=== PATIENT | male | born 1950 | race African-American/Black ===

== ENCOUNTER 2016-11-11 16:35 | Emergency (ER) | payer MEDICARE ==
[2016-11-11] MEDS ORDERED: Dexamethasone 4 mg/ml Vial ONE (16:52)
[2016-11-11] MEDS ORDERED: methylPREDNISolone Acetate 40 mg/ml Vial ONE (16:54)
--- NOTE | 2016-11-11 17:30 | RAD ---
THREE VIEWS RIGHT WRIST 11/11/16 COMPARISON: None. HISTORY: Bilateral wrist and hand pain. FINDINGS: Three views of the right wrist shows no evidence of acute fracture or dislocation. There is calcific ation of the TFCC. There is joint space narrowing of the radiocarpal joint consistent with osteoarth ritis. 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 POS: [facility]
[2016-11-11 17:51] LABS: ALT (SGPT) 41 U/L (0-55); AST (SGOT) 39 U/L (5-34); Alkaline Phosphatase 86 U/L (40-150); Anion Gap 15 mmol/L (10-20); BUN (Urea Nitrogen) 14 mg/dL (8.4-25.7); Bilirubin, Total 0.5 mg/dL (0.2-1.2); Calc. Creatinine Clearance 0 mL/min (70-130); Calcium 9.2 mg/dL (7.8-10.44); Carbon Dioxide 23 mmol/L (23-31); Chloride 105 mmol/L (98-107); Estimated GFR-MDRD 83; Protein, Total 7.8 g/dL (5.8-8.1)
[2016-11-11 17:53] LABS: #Basophils 0.1 thou/uL (0.0-0.2); #Eosinphils 0.3 thou/uL (0.0-0.7); #Lymphocytes 3.6 thou/uL (1.20-3.40); #Monocytes 0.5 thou/uL (0.11-0.59); #Neutrophils 2.5 thou/uL (1.40-6.50); %Basophils 1.6 % (0.0-1.0); %Eosinophils 3.7 % (0.0-10.0); %Lymphocytes 51.5 % (21.0-51.0); Mean Platelet Volume 8.8 fL (7.4-10.4)
--- NOTE | 2016-11-11 18:29 | PICIS ---
[facility] EMERGENCY RECORD TRIAGE (16:42 BDON) TRIAGE NOTES: Bilateral wrists and hand pain...denies recent injury. Thinks it is arthritis. (16:42 BDON) PATIENT: NAME: Jenaro Jansen, AGE: 66, GENDER: male, : Sun 1950, TIME OF GREET: [place] Nov 11, 2016 16:36, PREFERRED LANGUAGE: Gabonese, ETHNICITY: Not or , ECODE BILLING MAP: [facility], SSN: [id number], Zip Code: [address], KG WEIGHT: 83.91, PHONE: , , , PERSON ID: [id number], PCP: Jordy Mckeon. (16:42 BDON) COMPLAINT: HAND PAIN. (16:42 BDON) ADMISSION: URGENCY: 4 Non Urgent, ADMISSION SOURCE: Home, TRANSPORT: Walk-in, BED: TRIAGE. (16:42 BDON) ASSESSMENT: Assessment: Bilateral hand and wrists pain, states hips hurts also believing it is arthritis. (16:45 BDON) PROVIDERS: TRIAGE NURSE: Araceli Landeros RN. (16:42 BDON) VITAL SIGNS: BP 145/93, Pulse 88, Resp 17, Temp 97.5, (Oral), Pain 10, O2 Sat 96, Time 11/11/2016 16:40. (16:40 BDON) PREVIOUS VISIT ALLERGIES: No Known Drug Allergies. (16:42 BDON) No Known Drug Allergies. (16:45 BDON) KNOWN ALLERGIES No Known Drug Allergies CURRENT MEDICATIONS (16:42 BDON) Unknown blood pressure medication VITAL SIGNS VITAL SIGNS: BP: 145/93, Pulse: 88, Resp: 17, Temp: 97.5 (Oral), Pain: 10, O2 sat: 96, Time: 11/11/2016 16:40. (16:40 BDON) Resp: 17, Pain: 4, Time: 11/11/2016 17:50. (17:50 BDON) NURSING ASSESSMENT: HEAD-TO-TOE (17:04 BDON) CONSTITUTIONAL: Patient arrives ambulatory, Gait steady, History obtained from patient, Patient appears, uncomfortable, Patient cooperative, Patient alert, Oriented to person, place and time, Skin warm, Skin dry, Skin normal in color. NEURO: Able to close eyes, Face symmetrical, Speech normal. RESPIRATORY/CHEST: Respiratory assessment findings include respiratory effort easy, Respirations regular. LEFT UPPER EXTREMITY: Notes: hand and wrist pain able to move. RIGHT UPPER EXTREMITY: Notes: hand and wrist pain. SAFETY: Hospital ID band on. NURSING PROCEDURE: DISCHARGE NOTE (17:50 BDON) DISCHARGE: Patient discharged to home, ambulating without assistance, Summary of Care printed/ provided, Patient requested and was provided an electronic copy of Discharge Instructions, Transition record given to patient, Discharge instructions given to patient, &a-1R&a+25V*p+0X*r0286Y*c202B*c15G*c2P*p-0X&a-25V&a+1R Name: Jenaro Jansen : 1950 M66 MedRec: [id number] AcctNum: [id number] Prepared: [facility] Nov 11, 2016 18:13 by Interface Page 1 of 6 pMD [facility] EMERGENCY RECORD Simple or moderate discharge teaching performed, Prescriptions given and instructions on side effects given, Patient treated and evaluated by physician. VITAL SIGNS: Resp: 17, Pain: 4. NURSING PROCEDURE: NURSE NOTES NURSES NOTES: Patient states decreased pain, Notes: Aware of Imaging results. (17:38 BDON) Notes: "ran out" of prescription for morphine. (16:50 BDON) ORDER DETAILS Order Name: CBC with Differential, Status: Active, Time: 16:48 11/11/2016, User: [email or web address], - Ordered for: MD Miller Stanley, - Entered by: MD Miller Stanley - [facility] Nov 11, 2016 16:48, - Quantity: 1, Order Name: Comprehensive Metabolic Panel, Status: Active, Time: 16:48 11/11/2016, User: PRATEEK, - Ordered for: MD Miller Stanley, - Entered by: MD Miller Stanley - [place] Nov 11, 2016 16:48, - Quantity: 1, Order Name: Uric Acid, Status: Active, Time: 16:49 11/11/2016, User: PRATEEK, - Ordered for: MD Miller Stanley, - Entered by: MD Miller Stanley [facility] Nov 11, 2016 16:49, - Quantity: 1, Order Name: XR Wrist 3 Rt View STANDARD, Status: Active, Time: 16:49 11/11/2016, User: PRATEEK, - Ordered for: MD Miller Stanley, - Entered by: MD Miller Stanley - [facility] Nov 11, 2016 16:49, - Quantity: 1. MEDICATION ADMINISTRATION SUMMARY Drug Name: Decadron injection, Dose Ordered: 6 mg, Route: Intramuscular, Status: Given, Time: 16:56 11/11/2016, Drug Name: Depo-Medrol intramuscular, Dose Ordered: 120 mg, Route: Intramuscular, Status: Given, Time: 16:56 11/11/2016, Detailed record available in Medication Service section. MEDICATION SERVICE (16:56 ) Decadron injection: Order: Decadron injection (dexamethasone sod phosphate) - Dose: 6 mg : Intramuscular Schedule: Now Ordered by: Isaac Miller MD Entered by: Isaac Miller MD [facility] Nov 11, 2016 16:50 Documented as given by: Araceli Landeros RN [facility] Nov 11, 2016 16:56 Patient, Medication, Dose, Route and Time verified prior to administration. &a-1R&a+25V*p+0X*m6913Q*c202B*c15G*c2P*p-0X&a-25V&a+1R Name: Jenaro Jansen : 1950 M66 MedRec: [id number] AcctNum: [id number] Prepared: [place] Nov 11, 2016 18:13 by Interface Page 2 of 6 pMD [facility] EMERGENCY RECORD Amount given: 6 mg, Medication administered to left thigh. Depo-Medrol intramuscular: Order: Depo-Medrol intramuscular (methylprednisolone acetate) - Dose: 120 mg : Intramuscular Schedule: Now Ordered by: Isaac Miller MD Entered by: Isaac Miller MD [facility] Nov 11, 2016 16:50 Documented as given by: Araceli Landeros RN [facility] Nov 11, 2016 16:56 Patient, Medication, Dose, Route and Time verified prior to administration. Amount given: 120 mg, Medication administered to right thigh. HPI HAND (16:51 PRATEEK) CHIEF COMPLAINT: Patient presents for evaluation of right wrist and hand pain. HISTORIAN: History provided by patient, pain gradually worsening. MECHANISM OF INJURY: Unknown mechanism. QUALITY: Pain is dull in nature. TIME COURSE: Gradual onset of symptoms. ASSOCIATED WITH: No associated symptoms. EXACERBATED BY: Patient's condition exacerbated by movement. ROS (16:52 SHAN) CONSTITUTIONAL: Negative constitutional review of systems. CONSTITUTIONAL PED: Negative constitutional review of systems. EYES: Negative eye review of systems. EYES PED: Negative eye review of systems. ENT: Negative ears, nose, throat review of systems. ENT PED: Negative ears, nose, throat review of systems. CARDIOVASCULAR: Negative cardiovascular review of systems. CARDIOVASCULAR PED: Negative cardiovascular review of systems. RESPIRATORY: Negative respiratory review of systems. RESPIRATORY PED: Negative respiratory review of systems. GI: Negative gastrointestinal review of systems. GI PED: Negative gastrointestinal review of systems. GENITOURINARY FEMALE PED: Negative genitourinary review of systems. MUSCULOSKELETAL: Negative musculoskeletal review of systems. MUSCULOSKELETAL PED: Negative musculoskeletal review of systems. SKIN: Negative skin review of systems. SKIN PED: Negative skin review of systems. NEUROLOGIC: Negative neurologic review of systems. NEUROLOGIC PED: Negative neurologic review of systems. ENDOCRINE PED: Negative endocrine review of systems. NOTES: All systems reviewed, negative except as described above. PAST MEDICAL HISTORY (16:45 BDON) MEDICAL HISTORY: Notes: arthritis,, Flu vaccine not up to date, Tetanus not up to date. MALE SURGICAL HISTORY: back, bilateral knee and feet, Hep C. &a-1R&a+25V*p+0X*f5343C*c202B*c15G*c2P*p-0X&a-25V&a+1R Name: Jenaro Jansen Annita : 1950 M66 MedRec: [id number] AcctNum: [id number] Prepared: [facility] Nov 11, 2016 18:13 by Interface Page 3 of 6 pMD [facility] EMERGENCY RECORD SOCIAL HISTORY: Patient drinks every day, Patient denies drug use, Patient currently uses tobacco, smokes cigarettes, Lives at home, alone. PHYSICAL EXAM (16:52 SHAN) CONSTITUTIONAL PED: Patient afebrile, Patient alert, happy, smiling, interactive and playful, consolable, well hydrated, Patient appears pain free. CONSTITUTIONAL: Patient afebrile, Pulse normal, Blood pressure normal, Respiratory rate normal, Normal pulse oximetry, Patient appears non toxic, Patient appears pain free, Patient alert and oriented to person, place and time, Nursing notes reviewed. HEAD PED: Head exam included findings of head atraumatic, normocephalic. HEAD: Head exam included findings of head atraumatic, normocephalic. EYES: Eye exam included findings of eyelids normal to inspection, Pupils equally round and reactive to light, Extraocular muscles intact. ENT: Pharynx exam normal, Uvula exam normal, Tonsil exam normal. ENT PED: External Ear exam normal, tympanic membranes normal, hearing normal, Nose exam normal, Turbinates normal, Mouth exam normal, teeth normal, Pharynx exam normal, Uvula exam normal, Tonsil exam normal. NECK PED: Neck exam included findings of normal range of motion, Trachea midline, Thyroid normal. NECK: Neck exam included findings of normal range of motion, Trachea midline. RESPIRATORY CHEST PED: Chest and respiratory exam findings included chest non tender, Respiratory effort easy and unlabored, with good air exchange. RESPIRATORY CHEST: Respiratory and chest exam normal. CARDIOVASCULAR PED: Cardiovascular exam included findings of heart rate regular rate and rhythm, Heart sounds normal, Capillary refill less than 2 seconds. CARDIOVASCULAR: Cardiovascular exam included findings of heart rate regular rate and rhythm, Heart sounds normal. ABDOMEN PED: Abdominal exam included findings of abdomen nontender, Bowel sounds normal. ABDOMEN MALE: Abdominal exam included findings of abdomen nontender, Bowel sounds normal. BACK: Back exam normal. UPPER EXTREMITY: some swelling of right wrist noted, mild, no heat, joint arthritic changes noted; appearance more of a post repetive trauma and time osteoarhtrhitis, but patient feels that it came on more sudden., Upper extremity exam included findings of inspection normal, Range of motion normal. LOWER EXTREMITY: Lower extremity exam included findings of inspection normal, Range of motion normal. NEURO PED: Neuro exam normal. &a-1R&a+25V*p+0X*e3920Q*c202B*c15G*c2P*p-0X&a-25V&a+1R Name: Jenaro Jansen Annita : 1950 M66 MedRec: [id number] AcctNum: [id number] Prepared: [facility] Nov 11, 2016 18:13 by Interface Page 4 of 6 pMD [facility] EMERGENCY RECORD NEURO: Neuro exam normal. SKIN: Skin exam normal. EVENTS TRANSFER: Triage to Emergency Triage. (TueNov 11, 2016 16:42 BDON) Emergency Triage to Emergency Room -03. (16:43 BDON) Removed from Emergency Emergency Room -03. (18:04 MSPE) PROBLEM LIST No recorded problems DIAGNOSIS (16:54 SHAN) FINAL: PRIMARY: acute and chronic arthritis of right wrist and hand. DISPOSITION PATIENT: Disposition Type: Discharge, Disposition: *Discharge Home. (16:54 SHAN) Patient left the department. (18:04 MSPE) INSTRUCTION (16:55 SHAN) DISCHARGE: OSTEOARTHRITIS, ARTHRITIS OSTEO. PRESCRIPTION (16:57 SHAN) Ultram: TABLET : 50 mg : ORAL : Quantity: 1 Unit: tab(s) Route: ORAL Schedule: every 6 hours PRN Dispense: 30 Unit: tab(s) May substitute. Refills: No Refills . NOTES: No Refills. IMAGING LAB RESULTS...DOWN TIME: Image captured from scanner. (17:50 BDON) Page 2 added. Image captured from scanner. (17:50 BDON) *DISCHARGE INSTRUCTIONS RECEIPT: Image captured from scanner. (17:51 BDON) *SUPPLY CHARGE SHEET: Image captured from scanner. (17:52 BDON) RESULTS (17:35 SHAN) RADIOLOGY: XR Wrist 3 Rt View STANDARD Observe DT: TueNov 11, 2016 16:50, WR3R THREE VIEWS RIGHT WRIST 11/11/16 COMPARISON: None. HISTORY: &a-1R&a+25V*p+0X*u3948V*c202B*c15G*c2P*p-0X&a-25V&a+1R Name: Jenaro Jansen : 1950 M66 MedRec: [id number] AcctNum: [id number] Prepared: TueNov 11, 2016 18:13 by Interface Page 5 of 6 pMD [facility] EMERGENCY RECORD Bilateral wrist and hand pain. FINDINGS: Three views of the right wrist shows no evidence of acute fracture or dislocation. There is calcific ation of the TFCC. There is joint space narrowing of the radiocarpal joint consistent with osteoarth ritis. 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 POS: [facility] . Kirkpatrick: ANA=BRITTNEY Landeros, Araceli RODRIGUEZ=BRITTNEY Ann, Ashwini CHANDRA=MD Paul, Isaac &a-1R&a+25V*p+0X*a4417K*c202B*c15G*c2P*p-0X&a-25V&a+1R Name: Jenaro Jansen : 1950 M66 MedRec: [id number] AcctNum: [id number] Prepared: [place] Nov 11, 2016 18:13 by Interface Page 6 of 6 pMD [facility]TDD
--- NOTE | 2016-11-11 18:41 | ERRECORD ---
[facility] EMERGENCY RECORD HPI HAND (16:51 SHAN) CHIEF COMPLAINT: Patient presents for evaluation of right wrist and hand pain. HISTORIAN: History provided by patient, pain gradually worsening. MECHANISM OF INJURY: Unknown mechanism. QUALITY: Pain is dull in nature. TIME COURSE: Gradual onset of symptoms. ASSOCIATED WITH: No associated symptoms. EXACERBATED BY: Patient's condition exacerbated by movement. ROS (16:52 SHAN) CONSTITUTIONAL: Negative constitutional review of systems. CONSTITUTIONAL PED: Negative constitutional review of systems. EYES: Negative eye review of systems. EYES PED: Negative eye review of systems. ENT: Negative ears, nose, throat review of systems. ENT PED: Negative ears, nose, throat review of systems. CARDIOVASCULAR: Negative cardiovascular review of systems. CARDIOVASCULAR PED: Negative cardiovascular review of systems. RESPIRATORY: Negative respiratory review of systems. RESPIRATORY PED: Negative respiratory review of systems. GI: Negative gastrointestinal review of systems. GI PED: Negative gastrointestinal review of systems. GENITOURINARY FEMALE PED: Negative genitourinary review of systems. MUSCULOSKELETAL: Negative musculoskeletal review of systems. MUSCULOSKELETAL PED: Negative musculoskeletal review of systems. SKIN: Negative skin review of systems. SKIN PED: Negative skin review of systems. NEUROLOGIC: Negative neurologic review of systems. NEUROLOGIC PED: Negative neurologic review of systems. ENDOCRINE PED: Negative endocrine review of systems. NOTES: All systems reviewed, negative except as described above. PAST MEDICAL HISTORY (16:45 BDON) MEDICAL HISTORY: Notes: arthritis,, Flu vaccine not up to date, Tetanus not up to date. MALE SURGICAL HISTORY: back, bilateral knee and feet, Hep C. SOCIAL HISTORY: Patient drinks every day, Patient denies drug use, Patient currently uses tobacco, smokes cigarettes, Lives at home, alone. KNOWN ALLERGIES No Known Drug Allergies CURRENT MEDICATIONS (16:42 BDON) Unknown blood pressure medication VITAL SIGNS &a-1R&a+25V*p+0X*l0134B*c202B*c15G*c2P*p-0X&a-25V&a+1R Name: Marty Jansentee Ariza : 1950 M66 MedRec: [id number] AcctNum: [id number] Prepared: [facility] Nov 11, 2016 18:26 by Interface Page 1 of 3 pMD [facility] EMERGENCY RECORD VITAL SIGNS: BP: 145/93, Pulse: 88, Resp: 17, Temp: 97.5 (Oral), Pain: 10, O2 sat: 96, Time: 11/11/2016 16:40. (16:40 BDON) Resp: 17, Pain: 4, Time: 11/11/2016 17:50. (17:50 BDON) PHYSICAL EXAM (16:52 SHAN) CONSTITUTIONAL PED: Patient afebrile, Patient alert, happy, smiling, interactive and playful, consolable, well hydrated, Patient appears pain free. CONSTITUTIONAL: Patient afebrile, Pulse normal, Blood pressure normal, Respiratory rate normal, Normal pulse oximetry, Patient appears non toxic, Patient appears pain free, Patient alert and oriented to person, place and time, Nursing notes reviewed. HEAD PED: Head exam included findings of head atraumatic, normocephalic. HEAD: Head exam included findings of head atraumatic, normocephalic. EYES: Eye exam included findings of eyelids normal to inspection, Pupils equally round and reactive to light, Extraocular muscles intact. ENT: Pharynx exam normal, Uvula exam normal, Tonsil exam normal. ENT PED: External Ear exam normal, tympanic membranes normal, hearing normal, Nose exam normal, Turbinates normal, Mouth exam normal, teeth normal, Pharynx exam normal, Uvula exam normal, Tonsil exam normal. NECK PED: Neck exam included findings of normal range of motion, Trachea midline, Thyroid normal. NECK: Neck exam included findings of normal range of motion, Trachea midline. RESPIRATORY CHEST PED: Chest and respiratory exam findings included chest non tender, Respiratory effort easy and unlabored, with good air exchange. RESPIRATORY CHEST: Respiratory and chest exam normal. CARDIOVASCULAR PED: Cardiovascular exam included findings of heart rate regular rate and rhythm, Heart sounds normal, Capillary refill less than 2 seconds. CARDIOVASCULAR: Cardiovascular exam included findings of heart rate regular rate and rhythm, Heart sounds normal. ABDOMEN PED: Abdominal exam included findings of abdomen nontender, Bowel sounds normal. ABDOMEN MALE: Abdominal exam included findings of abdomen nontender, Bowel sounds normal. BACK: Back exam normal. UPPER EXTREMITY: some swelling of right wrist noted, mild, no heat, joint arthritic changes noted; appearance more of a post repetive trauma and time osteoarhtrhitis, but patient feels that it came on more sudden., Upper extremity exam included findings of inspection normal, Range of motion normal. LOWER EXTREMITY: Lower extremity exam included findings of inspection normal, Range of motion normal. NEURO PED: Neuro exam normal. &a-1R&a+25V*p+0X*k0014U*c202B*c15G*c2P*p-0X&a-25V&a+1R Name: Jenaro Jansen : 1950 M66 MedRec: [id number] AcctNum: [id number] Prepared: TueNov 11, 2016 18:26 by Interface Page 2 of 3 pMD [facility] EMERGENCY RECORD NEURO: Neuro exam normal. SKIN: Skin exam normal. MEDICATION ADMINISTRATION SUMMARY Drug Name: Decadron injection, Dose Ordered: 6 mg, Route: Intramuscular, Status: Given, Time: 16:56 11/11/2016, Drug Name: Depo-Medrol intramuscular, Dose Ordered: 120 mg, Route: Intramuscular, Status: Given, Time: 16:56 11/11/2016, Detailed record available in Medication Service section. PROBLEM LIST No recorded problems DIAGNOSIS (16:54 SHAN) FINAL: PRIMARY: acute and chronic arthritis of right wrist and hand. PRESCRIPTION (16:57 SHAN) Ultram: TABLET : 50 mg : ORAL : Quantity: 1 Unit: tab(s) Route: ORAL Schedule: every 6 hours PRN Dispense: 30 Unit: tab(s) May substitute. Refills: No Refills . NOTES: No Refills. DISPOSITION PATIENT: Disposition Type: Discharge, Disposition: *Discharge Home. (16:54 SHAN) Patient left the department. (18:04 MICHAEL) Kirkpatrick: ANA=BRITTNEY Landeros, Araceli MSPE=BRITTNEY Ann, Ashwini CHANDRA=MD Paul, Isaac &a-1R&a+25V*p+0X*l9278A*c202B*c15G*c2P*p-0X&a-25V&a+1R Name: Jenaro Jansen : 1950 M66 MedRec: [id number] AcctNum: [id number] Prepared: [facility] Nov 11, 2016 18:26 by Interface Page 3 of 3 pMD MTDD
== END 2016-11-11 17:50 | disposition home or self-care (01) ==
LOC: NAV ERS 16:35
DX: M19.031 Primary osteoarthritis, right wrist (principal); M19.041 Primary osteoarthritis, right hand; F17.210 Nicotine dependence, cigarettes, uncomplicated
CPT/HCPCS: 80053; 84550; 85025; 96372; J1030; J1100

== ENCOUNTER 2018-04-15 14:13 | Emergency (ER) | payer MEDICARE ==
[2018-04-15] MEDS ORDERED: diphenhydrAMINE 25 MG CAP ONE (14:29)
== END 2018-04-15 15:13 | disposition home or self-care (01) ==
LOC: NAV ERS 14:13
DX: T63.461A Toxic effect of venom of wasps, accidental (unintentional), initial encounter (principal); I10 Essential (primary) hypertension; F17.210 Nicotine dependence, cigarettes, uncomplicated; M19.90 Unspecified osteoarthritis, unspecified site; Z79.899 Other long term (current) drug therapy
CPT/HCPCS: 99282

== ENCOUNTER 2020-01-04 08:42 | Emergency (ER) | payer MEDICARE ==
[2020-01-04] MEDS ORDERED: HYDROcodone/Acetaminophen 5/325 mg Tablet ONE (09:22)
[2020-01-04] MEDS ORDERED: predniSONE 20 MG TAB ONE (09:23)
[2020-01-04] MEDS ORDERED: Ketorolac Tromethamine 30 MG/ML VIAL ONE (09:23)
== END 2020-01-04 09:53 | disposition home or self-care (01) ==
LOC: NAV ERS 08:42
DX: M10.9 Gout, unspecified (principal); K21.9 Gastro-esophageal reflux disease without esophagitis; I10 Essential (primary) hypertension; M19.90 Unspecified osteoarthritis, unspecified site; F17.210 Nicotine dependence, cigarettes, uncomplicated; Z79.899 Other long term (current) drug therapy; Z79.82 Long term (current) use of aspirin
CPT/HCPCS: 96372; 99283; J1885; J7512

== ENCOUNTER 2021-11-28 09:56 | Emergency (ER) | payer MEDICARE | END 2021-11-28 11:20 | disposition home or self-care (01) | LOC: NAV ERS 09:56 | DX: M25.532 Pain in left wrist (principal); K21.9 Gastro-esophageal reflux disease without esophagitis; I10 Essential (primary) hypertension; M19.90 Unspecified osteoarthritis, unspecified site; F17.210 Nicotine dependence, cigarettes, uncomplicated; Z79.82 Long term (current) use of aspirin; Z79.899 Other long term (current) drug therapy ==

== ENCOUNTER 2022-04-13 07:30 | Emergency (ER) | payer MEDICARE ==
[2022-04-13 08:19] LABS: #Basophils 0.1 thou/uL (0.0-0.2); #Eosinphils 0.4 thou/uL (0.0-0.7); #Lymphocytes 3.2 thou/uL (1.20-3.40); #Monocytes 0.5 thou/uL (0.11-0.59); #Neutrophils 2.5 thou/uL (1.40-6.50); %Eosinophils 5.6 % (0.0-10.0); %Lymphocytes 48.9 % (21.0-51.0); %Monocytes 7.2 % (0.0-10.0); %Neutrophils 37.4 % (42.0-75.0); Hemoglobin 12.8 g/dL (14.0-18.0); Mean Corpuscular HGB CONC 30.3 g/dL (32.0-36.0); Mean Corpuscular Hemoglobin 28.2 pg (27.0-31.0); Mean Corpuscular Volume 93.3 fL (78.0-98.0); Mean Platelet Volume 7.8 fL (7.4-10.4); Platelet Count 190 thou/uL (130-400); RBC Distribution Width 12.5 % (11.5-14.5); Red Blood Cell (RBC) Count 4.55 mill/uL (4.70-6.10); White Blood Cell (WBC) Count 6.6 thou/uL (4.8-10.8)
[2022-04-13 08:40] LABS: ALT (SGPT) 41 U/L (8-55); AST (SGOT) 22 U/L (5-34); Alkaline Phosphatase 84 U/L (40-110); Anion Gap 14 mmol/L (10-20); BUN (Urea Nitrogen) 10 mg/dL (8.4-25.7); Bilirubin, Total 0.3 mg/dL (0.2-1.2); Calc. Creatinine Clearance 0 mL/min (70-130); Calcium 9.5 mg/dL (7.8-10.44); Carbon Dioxide 26 mmol/L (23-31); Chloride 104 mmol/L (98-107); Globulin 3.3 g/dL (2.4-3.5); Glucose 92 mg/dL (83-110); Lipase 14 U/L (8-78); Potassium 3.9 mmol/L (3.5-5.1); Protein, Total 7.3 g/dL (5.8-8.1); Sodium 140 mmol/L (136-145)
[2022-04-13] MEDS ORDERED: Iopamidol 370 76% 100 ML VIAL ONE (09:00)
[2022-04-13] MEDS ORDERED: Sodium Chloride 0.9% 1,000 ML ONE (09:17)
[2022-04-13] MEDS ORDERED: Fentanyl 100 MCG/2 ML VIAL ONE (09:17)
[2022-04-13 10:22] LABS: Clarity Clear (Clear); Leukocyte Negative (Negative); Nitrite Negative (Negative); Protein, Urine (Dipstick) Negative (Neg-Trace)
[2022-04-13 10:23] LABS: Bilirubin Negative (Negative); Blood, Urine Trace (Negative); Glucose, Urine (Dipstick) Negative (Negative); Ketone, Urine Negative (Negative); Urobilinogen 0.2 mg/dL (Less than 2)
[2022-04-13 10:29] LABS: RBC/HPF 0-3 HPF (0-3)
== END 2022-04-13 11:05 | disposition home or self-care (01) ==
LOC: NAV ERS 07:30
DX: R10.31 Right lower quadrant pain (principal); Z79.899 Other long term (current) drug therapy; Z79.82 Long term (current) use of aspirin; K21.9 Gastro-esophageal reflux disease without esophagitis; I10 Essential (primary) hypertension; M19.90 Unspecified osteoarthritis, unspecified site; G25.81 Restless legs syndrome; F17.210 Nicotine dependence, cigarettes, uncomplicated
CPT/HCPCS: 36415; 74177; 80053; 81003; 81015; 83605; 83690; 85025; 96374; J3010; J7050; Q9967

== ENCOUNTER 2022-06-11 19:56 | Emergency (ER) | payer MEDICARE ==
[~2022-06-11 19:56] MED LIST: Iopamidol 370 76% 100 ML VIAL ONE
[2022-06-11] MEDS ORDERED: Ondansetron PF 4 MG/2 ML Vial ONE (20:25)
[2022-06-11] MEDS ORDERED: Morphine 4 MG/ML VIAL ONE (20:25)
[2022-06-11 20:32] LABS: #Basophils 0.1 thou/uL (0.0-0.2); #Eosinphils 0.1 thou/uL (0.0-0.7); #Lymphocytes 2.1 thou/uL (1.20-3.40); #Monocytes 1.3 thou/uL (0.11-0.59); #Neutrophils 9.3 thou/uL (1.40-6.50); %Basophils 0.9 % (0.0-1.0); %Eosinophils 0.7 % (0.0-10.0); %Monocytes 10.4 % (0.0-10.0); %Neutrophils 72.1 % (42.0-75.0); Hemoglobin 10.4 g/dL (14.0-18.0); Mean Corpuscular HGB CONC 31.3 g/dL (32.0-36.0); Mean Corpuscular Volume 92.6 fL (78.0-98.0); Mean Platelet Volume 6.4 fL (7.4-10.4); Platelet Count 395 thou/uL (130-400); Red Blood Cell (RBC) Count 3.58 mill/uL (4.70-6.10); White Blood Cell (WBC) Count 12.9 thou/uL (4.8-10.8)
[2022-06-11] MEDS ORDERED: Piperacillin/Tazobactam 4.5 GM VIAL ONE (20:55)
[2022-06-11] MEDS ORDERED: Sodium Chloride 0.9% 100 ML ONE (20:55)
[2022-06-11 20:57] LABS: INR-International Normal Ratio 1.1; PTT 34.5 sec (22.9-36.1); Prothrombin Time 13.8 sec (12.0-14.7)
[2022-06-11 21:17] LABS: ALT (SGPT) 105 U/L (8-55); AST (SGOT) 81 U/L (5-34); Albumin 3.1 g/dL (3.4-4.8); Alkaline Phosphatase 224 U/L (40-110); Anion Gap 16 mmol/L (10-20); BUN (Urea Nitrogen) 16 mg/dL (8.4-25.7); Bilirubin, Total 0.9 mg/dL (0.2-1.2); Calc. Creatinine Clearance 0 mL/min (70-130); Calcium 8.4 mg/dL (7.8-10.44); Carbon Dioxide 26 mmol/L (23-31); Chloride 99 mmol/L (98-107); Estimated GFR 95; Globulin 3.4 g/dL (2.4-3.5); Glucose 115 mg/dL (83-110); Lipase 30 U/L (8-78); Potassium 3.5 mmol/L (3.5-5.1); Protein, Total 6.5 g/dL (5.8-8.1); Sodium 137 mmol/L (136-145)
[2022-06-11 22:49] LABS: SARS-CoV-2 NAA Rapid Test DETECTED (NotDetected)
[2022-06-12 00:19] LABS: Bilirubin Negative (Negative); Blood, Urine Small (Negative); Clarity Clear (Clear); Glucose, Urine (Dipstick) Negative (Negative); Ketone, Urine Negative (Negative); Leukocyte Negative (Negative); Nitrite Negative (Negative); Protein, Urine (Dipstick) Trace mg/dL (Neg-Trace); Specific Gravity, Urine 1.015 (1.005-1.030)
[2022-06-12 00:26] LABS: Bacteria/HPF None Seen HPF (None Seen); RBC/HPF 0-3 HPF (0-3); WBC/HPF 0-3 HPF (0-3)
[2022-06-12] MEDS ORDERED: Piperacillin/Tazobactam 4.5 GM VIAL ONE (02:22)
[2022-06-12] MEDS ORDERED: Sodium Chloride 0.9% 100 ML ONE ×2 (02:22→08:50)
[2022-06-12] MEDS ORDERED: Dextrose 5 %-0.45 % NaCl 1,000 ML ONE (02:52)
[2022-06-12] MEDS ORDERED: Morphine 4 MG/ML VIAL ONE ×2 (03:01→07:43)
[2022-06-12 07:26] LABS: #Basophils 0.1 thou/uL (0.0-0.2); #Eosinphils 0.1 thou/uL (0.0-0.7); #Lymphocytes 1.9 thou/uL (1.20-3.40); #Monocytes 1.2 thou/uL (0.11-0.59); #Neutrophils 9.3 thou/uL (1.40-6.50); %Basophils 0.7 % (0.0-1.0); %Eosinophils 0.7 % (0.0-10.0); %Lymphocytes 15.1 % (21.0-51.0); %Monocytes 9.2 % (0.0-10.0); %Neutrophils 74.3 % (42.0-75.0); Hemoglobin 9.5 g/dL (14.0-18.0); Mean Corpuscular HGB CONC 30.6 g/dL (32.0-36.0); Mean Corpuscular Hemoglobin 28.5 pg (27.0-31.0); Mean Corpuscular Volume 93.1 fL (78.0-98.0); Mean Platelet Volume 6.8 fL (7.4-10.4); Platelet Count 351 thou/uL (130-400); RBC Distribution Width 12.7 % (11.5-14.5); Red Blood Cell (RBC) Count 3.31 mill/uL (4.70-6.10); White Blood Cell (WBC) Count 12.5 thou/uL (4.8-10.8)
[2022-06-12 07:37] LABS: ALT (SGPT) 84 U/L (8-55); AST (SGOT) 53 U/L (5-34); Albumin 2.7 g/dL (3.4-4.8); Alkaline Phosphatase 200 U/L (40-110); Anion Gap 11 mmol/L (10-20); BUN (Urea Nitrogen) 13 mg/dL (8.4-25.7); Bilirubin, Total 0.8 mg/dL (0.2-1.2); Calc. Creatinine Clearance 0 mL/min (70-130); Calcium 7.8 mg/dL (7.8-10.44); Carbon Dioxide 27 mmol/L (23-31); Chloride 99 mmol/L (98-107); Estimated GFR 95; Globulin 2.8 g/dL (2.4-3.5); Glucose 134 mg/dL (83-110); Potassium 3.4 mmol/L (3.5-5.1); Protein, Total 5.5 g/dL (5.8-8.1); Sodium 134 mmol/L (136-145)
[2022-06-12] MEDS ORDERED: Piperacillin/Tazobactam 3.375 GM VIAL ONE (08:49)
== END 2022-06-12 09:37 | disposition short-term general hospital (02) ==
LOC: NAV ERS 19:56
DX: U07.1 COVID-19 (principal); K91.840 Postprocedural hemorrhage of a digestive system organ or structure following a digestive system procedure; R18.8 Other ascites; I10 Essential (primary) hypertension; K21.9 Gastro-esophageal reflux disease without esophagitis; Z79.82 Long term (current) use of aspirin; Z79.899 Other long term (current) drug therapy
CPT/HCPCS: 71045; 74177; 80053; 83605; 83690; 85025; 85610; 85730; 87040; 87070; 87205; 96365; 96366; 96375; 96376; 99285; U0002; 81003; 81015; J2270; J2405; J2543; J3490; J7042; Q9967